=== PATIENT | female | born 1965 | race Caucasian/White ===

== ENCOUNTER 2024-12-27 11:07 | Inpatient (IN) | payer MEDICAID ==
[~2024-12-27] VITALS: Ht 162.6 cm; Wt 64.5 kg
[2024-12-27 13:08] LABS: BASOPHILS % (AUTO) 0.7 % (0-1); EOSINOPHILS % (AUTO) 0.5 % (0-6); HEMATOCRIT 41.2 % (35.0-45.0); HEMOGLOBIN 13.6 g/dl (12.0-16.0); LYMPHOCYTES # (AUTO) 1.5 X10'3 (1.1-4.8); LYMPHOCYTES % (AUTO) 22.4 % (21-51); MEAN CORPUSCULAR HEMOGLOBIN 27.7 PG (27.0-31.0); MEAN CORPUSCULAR HGB CONC 32.9 g/dL (33.0-36.5); MEAN CORPUSCULAR VOLUME 84.3 FL (78-98); MONOCYTES # (AUTO) 0.4 X10'3 (0-0.9); MONOCYTES % (AUTO) 6.2 % (2-12); NEUTROPHILS # (AUTO) 4.7 X10'3 (1.8-7.7); NEUTROPHILS % (AUTO) 70.2 % (42-75); PLATELET COUNT 393 X10'3 (140-440); RED BLOOD COUNT 4.89 X10'6 (4.20-5.60); WHITE BLOOD COUNT 6.8 X10'3 (4.5-11.0)
[2024-12-27 13:27] LABS: ALANINE AMINOTRANSFERASE 20 U/L (12-78); ALBUMIN/GLOBULIN RATIO 1.1 (1.1-1.5); ALKALINE PHOSPHATASE 120 IU/L (46-116); ANION GAP 9 (8-16); ASPARTATE AMINO TRANSFERASE 16 U/L (10-37); BILIRUBIN,TOTAL 0.8 MG/DL (0.1-1.0); BLOOD UREA NITROGEN 26 MG/DL (7-18); BUN/CREATININE RATIO 29.5 (10.0-20.0); CALCIUM 9.9 MG/DL (8.5-10.1); CHLORIDE 101 MMOL/L (99-107); CREATININE 0.88 MG/DL (0.40-0.90); GLUCOSE 103 MG/DL (70-104); LIPASE 28 U/L (16-77); SODIUM 139 MMOL/L (135-145); TOTAL CARBON DIOXIDE 29.5 MMOL/L (24-32); TOTAL PROTEIN 7.5 G/DL (6.4-8.2); eCRCL 58 ML/MIN; eGFR 65 ML/MIN
[2024-12-27 13:36] LABS: POTASSIUM 2.9 MMOL/L (3.5-5.1)
[2024-12-27] MEDS ORDERED: pantoprazole 40mg IV 80 MG in normal saline 100ml IV soln 100 ML IV ONE (14:20)
[2024-12-27 14:34] LABS: APTT 28 SECONDS (22-32); PROTHROMBIN TIME 10.9 SECONDS (9.0-12.0)
[2024-12-27] MEDS: normal saline 1000ML IV soln IVB ONE (14:45)
[2024-12-27 14:46] LABS: MAGNESIUM 1.9 MG/DL (1.5-2.4)
[2024-12-27] MEDS: magnesium sulf-water 2g/50mL 50 ML IV ONE (14:47)
[2024-12-27] MEDS: potassium CL 10mEq/100ml bag 100 ML IV ONE (14:47)
[2024-12-27] MEDS: LORazepam 2 mg/ml vial IV ONE (14:47)
[2024-12-27 14:51] LABS: ETHANOL < 10 MG/DL (<10)
[2024-12-27] MEDS: HYDROmorphone 1 mg/ml syringe IV ONE (14:51)
[2024-12-27] MEDS: pantoprazole 40 MG vial IV ONE (15:17)
[2024-12-27] MEDS: diatr meglu/diatrizoate 30ml oral sol.-(3 dose) bottle PO SCH (15:17)
[2024-12-27] MEDS ORDERED: iohexol 300mg/ml 100ml inj. ONE (16:12)
[2024-12-27] MEDS: normal saline 1000ml 1,000 ML IV ONE (16:17)
[2024-12-27] MEDS ORDERED: potassium Cl 20 mEq SR tablet PO PRN ×2 (17:05)
[2024-12-27] MEDS ORDERED: magnesium Cl slow-release 64mg tablet PO PRN (17:05)
[2024-12-27] MEDS ORDERED: magnesium sulf-water 4G/100mL 100 ML IV PRN (17:05)
[2024-12-27] MEDS ORDERED: magnesium sulf-water 2g/50mL 50 ML IV PRN (17:05)
[2024-12-27] MEDS: morphine 2 MG/ML inj. syringe IV PRN (17:39)
[2024-12-27] MEDS: normal saline 1000ml 1,000 ML IV SCH (17:41)
[2024-12-27 19:20] LABS: URINE HCG NEGATIVE (NEG)
[2024-12-27 19:22] LABS: BILIRUBIN,URINE NEGATIVE (Neg); CLARITY,URINE CLEAR (Clear); COLOR,URINE YELLOW (Yellow); GLUCOSE, URINE NEGATIVE (Neg); KETONES,URINE TRACE mg/dl (Neg); LEUKOCYTE ESTERASE ,URINE NEGATIVE (Neg); NITRITES, URINE NEGATIVE (Neg); OCCULT BLOOD,URINE TRACE-INTACT (Neg); PROTEIN,URINE NEGATIVE (Neg)
[2024-12-27] MEDS ORDERED: HYDR-3964 PO (19:24)
[2024-12-27] MEDS ORDERED: CLOP-32 PO (19:25)
[2024-12-27] MEDS ORDERED: VENL150C5 PO (19:25)
[2024-12-27] MEDS ORDERED: PANT40SU2 PO (19:26)
[2024-12-27] MEDS ORDERED: ONDA-243 PO (19:26)
[2024-12-27 19:28] LABS: UA COLLECTION TYPE CLN CATCH MIDSTREAM
[2024-12-27 19:29] LABS: BACTERIA,URINE FEW /HPF (Neg); HYALINE CASTS 0-3 /LPF (NEGATIVE); MUCUS STRANDS MODERATE /LPF (Neg); RBC,URINE 0-2 /HPF (0-2); SQUAMOUS EPITHELIAL CELL,UR FEW /LPF (FEW); WBC,URINE 0-4 /HPF (0-4)
[2024-12-27 19:47] LABS: URINE AMPHETAMINE SCREEN NEGATIVE (Neg); URINE BARBITUATE SCREEN NEGATIVE (Neg); URINE BENZODIAZEPINES SCREEN NEGATIVE (Neg); URINE CANNABINOID SCREEN POSITIVE (Neg); URINE COCAINE SCREEN NEGATIVE (Neg); URINE METHADONE SCREEN NEGATIVE (Neg); URINE OPIATE SCREEN POSITIVE (Neg); URINE PHENCYCLIDINE SCREEN NEGATIVE (Neg)
[2024-12-27] MEDS: K and/or MAG REPLACEMENT MC SCH (19:59)
[2024-12-27] MEDS: clopidogrel 75mg tablet PO SCH (21:41)
[2024-12-27] MEDS: potassium Cl 40MEQ/1/2NS 520ml 520 ML IV PRN (22:06)
[2024-12-27] MEDS: diphenhydrAMINE 50 mg/ml inj IV ONE (22:18)
[2024-12-27 22:35] VITALS: BP 130/70; PULSE 61; RESP 16; TEMP 98.1; O2SAT 97
[2024-12-27 22:48] LABS: OCCULT BLOOD STOOL NEGATIVE (Neg)
[2024-12-27 23:00] VITALS: RESP 16; O2SAT 97
[2024-12-28] MEDS: HYDROcodone/acetaminophen 5mg/325mg tablet PO PRN (00:39)
[2024-12-28] MEDS: ondansetron/PF 4mg/2ml inj IV PRN (03:28)
[2024-12-28 06:00] VITALS: BP 99/52; PULSE 59; RESP 16; TEMP 97.6; O2SAT 98
[2024-12-28] MEDS: pantoprazole 40 MG vial IV SCH (08:00)
[2024-12-28] MEDS: pantoprazole 40mg Tablet.DR PO SCH (08:10)
[2024-12-28] MEDS: venlafaxine XR 75mg capsule (Q24H) PO SCH (08:11)
[2024-12-28 09:41] LABS: BASOPHILS % (AUTO) 0.9 % (0-1); EOSINOPHILS # (AUTO) 0.1 X10'3 (0-0.9); EOSINOPHILS % (AUTO) 2.2 % (0-6); HEMATOCRIT 32.8 % (35.0-45.0); HEMOGLOBIN 10.9 g/dl (12.0-16.0); LYMPHOCYTES # (AUTO) 1.2 X10'3 (1.1-4.8); LYMPHOCYTES % (AUTO) 33.5 % (21-51); MEAN CORPUSCULAR HEMOGLOBIN 28.1 PG (27.0-31.0); MEAN CORPUSCULAR HGB CONC 33.1 g/dL (33.0-36.5); MEAN CORPUSCULAR VOLUME 84.8 FL (78-98); MEAN PLATELET VOLUME 6.9 FL (7.4-10.4); MONOCYTES # (AUTO) 0.3 X10'3 (0-0.9); MONOCYTES % (AUTO) 7.1 % (2-12); NEUTROPHILS # (AUTO) 2.1 X10'3 (1.8-7.7); NEUTROPHILS % (AUTO) 56.3 % (42-75); PLATELET COUNT 249 X10'3 (140-440); RED BLOOD COUNT 3.87 X10'6 (4.20-5.60); RED CELL DISTRIBUTION WIDTH 16.3 % (11.5-14.5); WHITE BLOOD COUNT 3.7 X10'3 (4.5-11.0)
[2024-12-28 09:58] LABS: ALBUMIN 2.9 G/DL (3.4-5.0); ANION GAP 4 (8-16); BLOOD UREA NITROGEN 14 MG/DL (7-18); BUN/CREATININE RATIO 25.9 (10.0-20.0); CALCIUM 8.5 MG/DL (8.5-10.1); CHLORIDE 109 MMOL/L (99-107); CREATININE 0.54 MG/DL (0.40-0.90); GLUCOSE 90 MG/DL (70-104); MAGNESIUM 1.9 MG/DL (1.5-2.4); POTASSIUM 4.3 MMOL/L (3.5-5.1); SODIUM 140 MMOL/L (135-145); TOTAL CARBON DIOXIDE 27.5 MMOL/L (24-32); eCRCL 94 ML/MIN; eGFR > 90 ML/MIN
[2024-12-28 10:00] VITALS: BP 106/58; PULSE 52; RESP 18; TEMP 97.4; O2SAT 100
[2024-12-28] MEDS ORDERED: HYDROmorphone/PF 0.2 MG/ML SYRINGE IM ONE (13:10)
[2024-12-28] MEDS: HYDROmorphone inj. 0.5 MG/0.5 ML DISP.SYRIN IV ONE (13:26)
[2024-12-28 18:00] VITALS: BP 123/68; PULSE 58; RESP 17; TEMP 97.6; O2SAT 98
[2024-12-28 20:00] VITALS: RESP 17; O2SAT 98
[2024-12-28 20:09] VITALS: RESP 17
[2024-12-28 22:00] VITALS: BP 108/49; PULSE 61; RESP 18; TEMP 97; O2SAT 99
[2024-12-29 06:00] VITALS: BP 108/49; PULSE 62; RESP 17; TEMP 97.4; O2SAT 99
[2024-12-29 06:33] LABS: BASOPHILS % (AUTO) 1.1 % (0-1); EOSINOPHILS # (AUTO) 0.1 X10'3 (0-0.9); EOSINOPHILS % (AUTO) 2.3 % (0-6); HEMOGLOBIN 10.8 g/dl (12.0-16.0); LYMPHOCYTES # (AUTO) 0.9 X10'3 (1.1-4.8); LYMPHOCYTES % (AUTO) 25.7 % (21-51); MEAN CORPUSCULAR HEMOGLOBIN 28.2 PG (27.0-31.0); MEAN CORPUSCULAR HGB CONC 32.9 g/dL (33.0-36.5); MEAN CORPUSCULAR VOLUME 85.9 FL (78-98); MEAN PLATELET VOLUME 6.9 FL (7.4-10.4); MONOCYTES # (AUTO) 0.2 X10'3 (0-0.9); MONOCYTES % (AUTO) 4.7 % (2-12); NEUTROPHILS # (AUTO) 2.4 X10'3 (1.8-7.7); NEUTROPHILS % (AUTO) 66.2 % (42-75); PLATELET COUNT 239 X10'3 (140-440); RED BLOOD COUNT 3.84 X10'6 (4.20-5.60); RED CELL DISTRIBUTION WIDTH 15.6 % (11.5-14.5); WHITE BLOOD COUNT 3.6 X10'3 (4.5-11.0)
[2024-12-29 06:59] LABS: ALBUMIN 2.7 G/DL (3.4-5.0); ANION GAP 10 (8-16); BLOOD UREA NITROGEN 12 MG/DL (7-18); CALCIUM 8.5 MG/DL (8.5-10.1); CHLORIDE 108 MMOL/L (99-107); GLUCOSE 64 MG/DL (70-104); MAGNESIUM 1.6 MG/DL (1.5-2.4); POTASSIUM 4.1 MMOL/L (3.5-5.1); SODIUM 139 MMOL/L (135-145); TOTAL CARBON DIOXIDE 21.2 MMOL/L (24-32); eCRCL 85 ML/MIN; eGFR > 90 ML/MIN
[2024-12-29 08:00] VITALS: RESP 16; O2SAT 98
[2024-12-29 10:00] VITALS: BP 107/62; PULSE 67; RESP 17; TEMP 98.5; O2SAT 97
[2024-12-29] MEDS ORDERED: metoclopramide 5 mg/ml inj IV ONE (11:20)
[2024-12-29] MEDS: metoclopramide 5 mg/ml inj IV PRN (11:30)
[2024-12-29 18:40] VITALS: BP 115/66; PULSE 65; RESP 16; TEMP 98.2; O2SAT 99
[2024-12-29 22:00] VITALS: BP 124/58; PULSE 60; RESP 18; TEMP 98.9; O2SAT 98
[2024-12-30 06:00] VITALS: BP 107/42; PULSE 46; RESP 15; TEMP 97.7; O2SAT 99
[2024-12-30 06:36] LABS: EOSINOPHILS # (AUTO) 0.1 X10'3 (0-0.9); EOSINOPHILS % (AUTO) 3.4 % (0-6); HEMATOCRIT 32.3 % (35.0-45.0); LYMPHOCYTES # (AUTO) 1.2 X10'3 (1.1-4.8); LYMPHOCYTES % (AUTO) 31.8 % (21-51); MEAN CORPUSCULAR HEMOGLOBIN 28.6 PG (27.0-31.0); MEAN CORPUSCULAR HGB CONC 34.1 g/dL (33.0-36.5); MEAN PLATELET VOLUME 6.9 FL (7.4-10.4); MONOCYTES # (AUTO) 0.3 X10'3 (0-0.9); MONOCYTES % (AUTO) 6.9 % (2-12); NEUTROPHILS # (AUTO) 2.1 X10'3 (1.8-7.7); NEUTROPHILS % (AUTO) 56.9 % (42-75); PLATELET COUNT 259 X10'3 (140-440); RED BLOOD COUNT 3.85 X10'6 (4.20-5.60); RED CELL DISTRIBUTION WIDTH 15.7 % (11.5-14.5); WHITE BLOOD COUNT 3.7 X10'3 (4.5-11.0)
[2024-12-30 07:03] LABS: ALBUMIN 2.8 G/DL (3.4-5.0); ANION GAP 8 (8-16); BLOOD UREA NITROGEN 6 MG/DL (7-18); BUN/CREATININE RATIO 8.2 (10.0-20.0); CALCIUM 8.6 MG/DL (8.5-10.1); CHLORIDE 109 MMOL/L (99-107); CREATININE 0.73 MG/DL (0.40-0.90); GLUCOSE 92 MG/DL (70-104); MAGNESIUM 1.5 MG/DL (1.5-2.4); POTASSIUM 3.9 MMOL/L (3.5-5.1); SODIUM 142 MMOL/L (135-145); TOTAL CARBON DIOXIDE 25.5 MMOL/L (24-32); eCRCL 70 ML/MIN; eGFR 81 ML/MIN
[2024-12-30] MEDS ORDERED: METO5TAB85 PO (15:40)
[2024-12-30] MEDS ORDERED: PANT40TA54 PO (15:40)
[2024-12-30] MEDS ORDERED: pantoprazole 40mg Tablet.DR PO SCH (20:00)
== END 2024-12-30 17:39 | disposition home or self-care (01) | DRG 241 ==
LOC: ER 11:08 → ED HOLD 17:10 → ORTHO 4S 22:35
PROVIDERS: ADMIT Internal Medicine; ATTEND Internal Medicine
DX: K29.70 Gastritis, unspecified, without bleeding (principal); E86.0 Dehydration; E87.6 Hypokalemia; I10 Essential (primary) hypertension; K44.9 Diaphragmatic hernia without obstruction or gangrene; F41.9 Anxiety disorder, unspecified; Z79.02 Long term (current) use of antithrombotics/antiplatelets; Z86.73 Personal history of transient ischemic attack (TIA), and cerebral infarction without residual deficits; Z90.49 Acquired absence of other specified parts of digestive tract; Z98.84 Bariatric surgery status; Z88.8 Allergy status to other drugs, medicaments and biological substances; Z88.6 Allergy status to analgesic agent
CPT/HCPCS: 36415; 74177; 80048; 80053; 80305; 80320; 81001; 81025; 82272; 83690; 83735; 84132; 85025; 85610; 85730; 86885; 86900; 86901; 87081; 96365; 96367; 96368; 96375; 99291; G0378; J1171; J1200; J2060; J2270; J2405; J2470; J2765; J3480; J7030; Q9963; Q9967